=== PATIENT | male | born 1990 | race Caucasian/White ===

== ENCOUNTER 2021-08-15 11:17 | Emergency (ER) | payer MEDICAID ==
[2021-08-15 12:37] LABS: BASOPHIL 0.3 % (0-2); EOSINOPHIL 0.6 % (0-5); HCT 48.2 % (42.0-52.0); HGB 16.4 g/dl (13.2-18.0); LYMPHOCYTE 12.2 % (15-48); MCV 85.2 fL (78.0-100.0); MONOCYTE 5.2 % (0-12); MPV 10.3 fL (6.0-9.5); NEUTROPHIL 81.2 % (41-80); NRBC 0; PLT 281 K/uL (150-400); RBC 5.66 M/uL (4.70-6.00); WBC 13.2 K/uL (4.0-10.5)
[2021-08-15 12:58] LABS: ALBUMIN 4.1 g/dL (3.4-5.0); BILIRUBIN - TOTAL 0.6 mg/dL (0.2-1.0); CREATININE 0.83 mg/dL (0.67-1.17); GLOBULIN (CALCULATION) 4.2 g/dL; MAGNESIUM 1.9 mg/dL (1.8-2.4); POTASSIUM 3.4 mmol/L (3.5-5.1); TOTAL PROTEIN 8.3 g/dL (6.4-8.2)
[2021-08-15 13:03] LABS: LACTIC ACID 1.8 mmol/L (0.4-1.9)
[2021-08-15 13:03] LABS: BILIRUBIN NEGATIVE (NEGATIVE); BLOOD 3+ Ery/uL (NEGATIVE); COLOR YELLOW (YELLOW); GLUCOSE (U) NORMAL (NORMAL); LEUKOCYTES 2+ Leu/uL (NEGATIVE); NITRITE POSITIVE (NEGATIVE); PROTEIN 2+ mg/dL (NEGATIVE); SPECIFIC GRAVITY 1.025 (1.001-1.030); UROBILINOGEN 0.2 mg/dL (0.2-1.0); pH 6.5 (5.0-9.0)
[2021-08-15 13:04] LABS: CLARITY HAZY (CLEAR)
[2021-08-15 13:07] LABS: AMPHETAMINES NEGATIVE (NEGATIVE); BARBITURATES NEGATIVE (NEGATIVE); ECSTASY (MDMA) NEGATIVE (NEGATIVE); MARIJUANA (THC) POSITIVE (NEGATIVE); METHADONE NEGATIVE (NEGATIVE); OPIATES NEGATIVE (NEGATIVE); OXYCODONE NEGATIVE (NEGATIVE)
[2021-08-15 13:12] LABS: URINARY RBC TNTC; URINARY WBC TNTC
[2021-08-15 13:13] LABS: BACTERIA 3+; SQUAMOUS EPITHELIAL CELLS RARE
[2021-08-15] MEDS ORDERED: AMOX TR-K CLV1 EAC4 PO (17:18)
[2021-08-15] MEDS ORDERED: ONDANSETRON ODT4 MG PO (17:18)
== END 2021-08-15 17:37 | disposition home or self-care (01) ==
LOC: FER 11:17
PROVIDERS: Emergency Medicine
DX: N39.0 Urinary tract infection, site not specified (principal); J18.9 Pneumonia, unspecified organism; R11.2 Nausea with vomiting, unspecified; F17.210 Nicotine dependence, cigarettes, uncomplicated; Z28.310 Unvaccinated for COVID-19
CPT/HCPCS: 36415; 80053; 80305; 81001; 83605; 83690; 83735; 84145; 85025; 93005; J1200; J1630; J1885; J2405; J2543; J7030